=== PATIENT | female | born 1950 | race Caucasian/White ===

== ENCOUNTER → 2024-11-23 09:48 | Outpatient (BNVA) | payer MEDICARE, OTHER, SELFPAY | PROVIDERS: Family Provider Nurse Practitioner; PCP Nurse Practitioner; Visit Provider Nurse Practitioner | DX: I10 Essential (primary) hypertension (principal); E55.9 Vitamin D deficiency, unspecified; H65.90 Unspecified nonsuppurative otitis media, unspecified ear | CPT/HCPCS: 80053; 80061; 82306; 82607; 84443; 85025 ==